=== PATIENT | female | born 1985 | race Caucasian/White ===

== ENCOUNTER 2016-06-11 20:32 | Emergency (ER) | payer OTHER ==
[~2016-06-11] VITALS: Ht 167.6 cm; Wt 123.6 kg
[~2016-06-11 20:32] MED LIST: ARMO90TA PO; PAXI40TA PO; PERC10TA27 PO
[2016-06-11 20:46] VITALS: BP 137/92; PULSE 104; RESP 16; TEMP 99.8; O2SAT 98
[2016-06-11] MEDS ORDERED: ZOLO50TA PO (20:51)
[2016-06-11] MEDS ORDERED: LEVO150T7 PO (20:51)
[2016-06-11] MEDS ORDERED: CYTO5TAB PO (20:51)
[2016-06-11] MEDS ORDERED: SUMA20I NASAL (20:51)
[2016-06-11 21:00] VITALS: BP 137/87; PULSE 98; RESP 18; O2SAT 96
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
[2016-06-11] MEDS ORDERED: ACETAMINOPHEN 500 MG CPLT PO ONE (21:45)
[2016-06-11] MEDS ORDERED: ONDANSETRON ODT 4 MG TAB PO ONE (21:45)
[2016-06-11 22:00] VITALS: BP 142/97; PULSE 94; RESP 16; O2SAT 97
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
[2016-06-11 23:00] VITALS: BP 127/85; PULSE 93; RESP 16; O2SAT 97
== END 2016-06-11 23:12 | disposition home or self-care (01) ==
LOC: PHED 20:32
DX: S20.212A Contusion of left front wall of thorax, initial encounter (principal); R51 Headache; R11.10 Vomiting, unspecified; E07.9 Disorder of thyroid, unspecified; Z86.59 Personal history of other mental and behavioral disorders; V49.88XA Car occupant (driver) (passenger) injured in other specified transport accidents, initial encounter; Y92.410 Unspecified street and highway as the place of occurrence of the external cause
CPT/HCPCS: 71101; 99284